=== PATIENT | female | born 1995 | race Caucasian/White ===

== ENCOUNTER 2024-08-22 19:06 | Emergency (ER) | payer SELFPAY ==
[~2024-08-22] VITALS: Ht 165.1 cm; Wt 77.0 kg
[2024-08-22 19:09] VITALS: TEMP 97.7; O2SAT 97
[2024-08-22 20:15] LABS: EOSINOPHILS % 0.2 % (0.0-5.0); HEMATOCRIT. 42.9 % (36.0-48.0); HEMOGLOBIN. 14.6 g/dL (12.0-16.0); LYMPHOCYTES % 27.9 % (20.0-50.0); MEAN CORPUSCULAR VOLUME 88.2 fL (81.0-99.0); MEAN PLATELET VOLUME 8.8 fl (7.4-10.4); MONOCYTES % 2.1 % (2.0-8.0); NEUTROPHILS % 68.8 % (40.0-76.0); PLATELET 244 x1000/uL (130-400); RED BLOOD CELL COUNT 4.87 mill/uL (4.2-5.4); RED CELL DISTRIBUTION WIDTH 13.4 % (11.6-14.6); WHITE BLOOD COUNT 6.1 x1000/uL (4.5-11.0)
[2024-08-22 20:23] LABS: CHLORIDE 105 mEq/L (98-107); POTASSIUM 3.5 mEq/L (3.5-5.1); SODIUM 141 mEq/L (136-145)
[2024-08-22 20:24] LABS: CALCIUM 9.2 mg/dL (8.7-10.4); CARBON DIOXIDE 22 mEq/L (21-32)
[2024-08-22 20:29] LABS: CREATININE 0.9 mg/dL (0.6-1.0); ETHANOL BLOOD 235 mg/dL (<10); GLUCOSE 122 mg/dL (70-105); UREA NITROGEN BLOOD 9 mg/dL (9-23)
[2024-08-22 20:31] LABS: ACETAMINOPHEN < 2 ug/mL (10-30)
[2024-08-22] MEDS: ONDANSETRON HCL 4MG/2ML INJ IV STA (20:35)
[2024-08-22] MEDS: SODIUM CHLORIDE 0.9% 1,000 ML IV ONE (20:35)
[2024-08-22 21:00] VITALS: BP 131/98; PULSE 96; RESP 16; O2SAT 97
[2024-08-22] MEDS ORDERED: DOCUSATE SODIUM 100MG CAPSULE PO PRN (21:30)
[2024-08-22] MEDS ORDERED: CLONIDINE 0.1MG TABLET PO PRN (21:30)
[2024-08-22] MEDS ORDERED: MAGNESIUM/ALUMINUM HYDROXIDE/SIMETHICONE 30ML UDC PO PRN (21:30)
[2024-08-22] MEDS ORDERED: ACETAMINOPHEN 325MG TABLET PO PRN (21:30)
[2024-08-22] MEDS ORDERED: GUAIFENESIN 200MG/10ML SUGAR FREE UDC PO PRN (21:30)
[2024-08-22] MEDS ORDERED: ONDANSETRON HCL 4MG/2ML INJ IV PRN (21:30)
[2024-08-22] MEDS: FOLIC ACID 1 MG, THIAMINE HCL 100 MG, MVI, ADULT NO.1 10 ML in DEXTROSE 5% WATER 1,000 ML IV ONE (22:14)
[2024-08-23] MEDS ORDERED: FOLIC ACID 1MG TABLET PO SCH (09:00)
[2024-08-23] MEDS ORDERED: THIAMINE HCL 100MG TABLET PO SCH (09:00)
== END 2024-08-23 00:03 | disposition left against medical advice (07) ==
LOC: ER 19:06 → EDBEDREQ 21:20 → EDBEDREQTM 21:20 → ER 08-23 00:03
DX: R41.82 Altered mental status, unspecified (principal); F10.129 Alcohol abuse with intoxication, unspecified; F19.10 Other psychoactive substance abuse, uncomplicated; Y90.7 Blood alcohol level of 200-239 mg/100 ml
CPT/HCPCS: 80048; 80307; 80329; 80320; 83036; 85025; 36415; 96361; 96365; 96375; 99284; J3490 ×2; J2405; J3411; J7070; J7030; 96360; 96366; G0480